=== PATIENT | female | born 1980 | race Caucasian/White ===

== ENCOUNTER → 2017-03-06 | Outpatient (CLI) | payer BC | LOC: FIMAGING 11:37 | PROVIDERS: ATTEND Obstetrics & Gynecology | DX: Z31.9 Encounter for procreative management, unspecified (principal) ==

== ENCOUNTER → 2018-03-21 | Outpatient (CLI) | payer BC | LOC: FIMAGING 14:21 | PROVIDERS: ATTEND Hospitalist | DX: O09.521 Supervision of elderly multigravida, first trimester (principal); F31.9 Bipolar disorder, unspecified; Z3A.12 12 weeks gestation of pregnancy; Z98.891 History of uterine scar from previous surgery ==

== ENCOUNTER → 2018-04-29 | Outpatient (CLI) | payer BC | LOC: FIMAGING 10:26 | PROVIDERS: ATTEND Hospitalist | DX: O09.522 Supervision of elderly multigravida, second trimester (principal); O35.8XX0 Maternal care for other (suspected) fetal abnormality and damage, not applicable or unspecified; Z3A.17 17 weeks gestation of pregnancy; Z98.891 History of uterine scar from previous surgery; Z82.3 Family history of stroke ==

== ENCOUNTER → 2018-07-01 | Outpatient (CLI) | payer BC | LOC: FIMAGING 11:27 | PROVIDERS: ATTEND Hospitalist | DX: Z36.89 Encounter for other specified antenatal screening (principal); O09.522 Supervision of elderly multigravida, second trimester; Z3A.26 26 weeks gestation of pregnancy; O36.62X0 Maternal care for excessive fetal growth, second trimester, not applicable or unspecified; O34.219 Maternal care for unspecified type scar from previous cesarean delivery; O99.342 Other mental disorders complicating pregnancy, second trimester; F31.9 Bipolar disorder, unspecified ==

== ENCOUNTER → 2018-08-08 | Outpatient (CLI) | payer BC | LOC: FIMAGING 09:53 | PROVIDERS: ATTEND Hospitalist | DX: O36.63X0 Maternal care for excessive fetal growth, third trimester, not applicable or unspecified (principal); O09.523 Supervision of elderly multigravida, third trimester; O99.343 Other mental disorders complicating pregnancy, third trimester; O34.219 Maternal care for unspecified type scar from previous cesarean delivery; F31.9 Bipolar disorder, unspecified; Z79.899 Other long term (current) drug therapy; Z3A.32 32 weeks gestation of pregnancy ==

== ENCOUNTER 2018-09-20 18:56 | Observation (INO) | payer BC ==
--- NOTE | 2018-09-20 22:01 | GHP ---
DATE OF ADMISSION: 09/20/2018 ADMITTING DIAGNOSIS: Intrauterine at 37+ weeks' gestation with possible rupture of membran es. No evidence of active labor. HISTORY OF PRESENT ILLNESS: The patient is a 38-year-old, 2, para 1-0-0-1, with a last menst rual period of 12/25/2017, and an EDC of 10/01/2018. She presented complaining to labor and delivery of possible leakage of fluids, rupture of membranes. She noticed gushes of fluid after she had urin ated on 2 different occasions this evening without leakage in between episodes. Fluid was clear. Sh e did not feel that it was urine. She had no vaginal bleeding. Baby was moving well, and she denied contractions. Patient had a with G1 and plans for a repeat . Patient was evaluated in labor and delivery. She was afebrile. Vital signs are stable. heart tones were 120s, reactive, moderate variability, category 1. She had rare contractions and her Amni Sure was negative. Patient was discharged home with labor precautions to follow up as scheduled in t office and for her repeat on schedule. /[id number]/MODL
[2018-09-24] MEDS ORDERED: LR 500 ML IV PRN (06:12)
[2018-09-24] MEDS ORDERED: HYDROmorphONE/DILAUDID 2 MG/ML INJ IVP PRN (06:12)
[2018-09-24] MEDS ORDERED: ONDANSETRON 4 MG/2 ML VIAL IVP PRN ×2 (06:12→07:32)
[2018-09-24] MEDS ORDERED: NALOXONE HCL 0.4 MG/ML INJ IVP PRN ×2 (06:12→07:32)
[2018-09-24] MEDS ORDERED: PROMETHAZINE HCL 25 MG/ML INJ IVP PRN (06:12)
[2018-09-24] MEDS ORDERED: fentaNYL 100 MCG/2 ML INJ IVP PRN (06:12)
[2018-09-24] MEDS ORDERED: PHENYLEPHRINE HCL 100 MCG/ML SYR IVP PRN (06:12)
--- NOTE | 2018-09-24 06:52 | PDANEPAE ---
ANE Past Medical History - Cardiovascular History Hx Hypertension: No Hx Arrhythmias: No Hx Coronary Artery / Peripheral Vascular Disease: No - Pulmonary History Hx Asthma/Reactive Airway Disease: No Hx Sleep Apnea: No - Neurologic History Hx Cerebrovascular Accident: No - Endocrine History Hx Diabetes: No Hypothyroid: No - Renal History Hx Renal Disorders: No - Liver History Hx Hepatic Disorders: No - Neurological & Psychiatric Hx Hx Neurological and Psychiatric Disorders: Yes Neurological / Psychiatric History Comment: Bipolar. Takes lithium but did not take today. - Cancer History Hx Cancer: No - GI History GERD: severe Gastrointestinal History Comment: Takes prilosec. Took today. - Chronic Pain History Chronic Pain: No ANE Review of Systems Review of Systems: ANE Patient History - Allergies Allergies/Adverse Reactions: No Known Allergies Allergy (Verified 09/24/18 06:37) - Home Medications Home Medications: LANSOPRAZOLE [Prevacid 30 mg cap] 30 mg PO DAILY 06/19/13 [Last Taken 09/24/18 04:30] Vit27&Calcium/Iron/FA [] 1 tab PO DAILY 06/19/13 [Last Taken 12:00] Chacra Carbonate [Chacra Carbonate Cap 300 mg (*)] 900 mg PO TID 09/20/18 [ Last Taken 09/23/18 21:00] ACETAMINOPHEN 09/24/18 [Last Taken 09/22/18] Dha 09/24/18 [Last Taken 09/23/18 12:00] Iron 09/24/18 [Last Taken 09/23/18 12:00] - Smoking Hx Smoking Status: Former smoker ANE Labs/Vital Signs - Vital Signs Height: 170.18 cm Weight: 106.594 kg ANE Physical Exam - Airway Neck exam: FROM Mallampati Score: Class 3 Mouth exam: normal dental/mouth exam - Pulmonary Pulmonary: no respiratory distress, no rales or rhonchi, clear to auscultation - Cardiovascular Cardiovascular: regular rate and rhythym, no murmur, rub, or gallop - ASA Status ASA Status: II ANE Anesthesia Plan Anesthesia Plan: spinal
--- NOTE | 2018-09-24 16:10 | POSTANESTH ---
Post Anesthetic Evaluation Cardiovascular Status: Normal, Stable Respiratory Status: Normal, Stable Level of Consciousness/Mental Status: Can Participate in Eval Pain Control: Adequate, Prn Tx Ordered Nausea/Vomiting Control: Adequate, Prn Tx Ordered Complications Possibly Related to Anesthesia: None Noted
== END 2018-09-20 20:30 | disposition home or self-care (01) ==
LOC: FLD 18:56
PROVIDERS: ADMIT Obstetrics & Gynecology; ATTEND Obstetrics & Gynecology
DX: Z03.79 Encounter for other suspected maternal and fetal conditions ruled out (principal); Z3A.37 37 weeks gestation of pregnancy; O09.523 Supervision of elderly multigravida, third trimester
CPT/HCPCS: 59025; G0378

== ENCOUNTER 2018-09-24 05:33 | Inpatient (IN) | payer BC ==
[2018-09-24] MEDS ORDERED: LR 500 ML IV ONE (05:45)
[2018-09-24] MEDS ORDERED: CITRIC ACID/SODIUM CITRATE 30 ML UDCUP PO ONE (05:45)
[2018-09-24] MEDS ORDERED: LR 1,000 ML IV SCH (06:00)
[2018-09-24 06:37] LABS: PLATELET COUNT 227 10^3/uL (150-400)
[2018-09-24] MEDS ORDERED: BUPIVACAINE/DEXTROSE 7.5MG/ML 2 ML SPINAL AMP SP ONE (06:44)
[2018-09-24] MEDS ORDERED: morphINE PF 5 MG/10 ML INJ ONE (07:10)
[2018-09-24] MEDS ORDERED: PHENYLEPHRINE HCL 100 MCG/ML SYR ONE ×3 (07:10→08:51)
[2018-09-24] MEDS ORDERED: ceFAZolin 2 GM/DEXTROSE 100 ML IV ONE (07:10)
[2018-09-24] MEDS ORDERED: MISOPROSTOL 200 MCG TAB ONE (07:44)
[2018-09-24] MEDS ORDERED: OXYTOCIN 100 UNITS/10 ML VIAL ONE (08:35)
[2018-09-24] MEDS ORDERED: oxyCODONE IR 5 MG TAB PO PRN (09:17)
[2018-09-24] MEDS ORDERED: POLYETHYLENE GLYCOL 3350 17 GM PKT PO PRN (09:17)
[2018-09-24] MEDS ORDERED: MAGNESIUM HYDROXIDE 30 ML UDCUP PO PRN (09:17)
[2018-09-24] MEDS ORDERED: BISACODYL 10 MG SUPP PR PRN (09:17)
[2018-09-24] MEDS ORDERED: SIMETHICONE 80 MG TAB CHEW PO PRN (09:17)
[2018-09-24] MEDS ORDERED: LACTULOSE 20 GM/30 ML UDCUP PO PRN (09:17)
[2018-09-24] MEDS ORDERED: HYDROCODONE/APAP 5/325 TAB PO PRN (09:17)
[2018-09-24] MEDS ORDERED: DOCUSATE SODIUM 100 MG CAP PO PRN (09:17)
[2018-09-24] MEDS ORDERED: PROMETHAZINE HCL 25 MG/ML INJ IVP PRN (09:17)
--- NOTE | 2018-09-24 09:23 | OBDEL ---
Info Type: Repeat Presentation at Delivery: Vertex L&D Analgesia/Anesthesia Type: Spinal GBS+: Yes Intrapartum Medications: Discontinued Medications Generic Name Dose Route Start Last Admin Trade Name Virginie PRN Reason Stop Dose Admin Citric Acid/Sodium Citrate 30 ml 09/24/18 05:45 09/24/18 07:28 Bicitra PO 09/24/18 05:46 30 ml ONCALL ONE Administration Lactated Ringer's 500 mls @ 0 mls/hr 09/24/18 05:45 09/24/18 07:00 Lr IV 09/24/18 05:46 500 mls ONCE ONE Administration As Directed Cefazolin Sodium/Dextrose 100 mls @ 200 mls/hr 09/24/18 07:10 09/24/18 07:38 Ancef IV 09/24/18 07:39 100 mls ONCALL ONE Administration Protocol Indications for Delivery: Elective Operative Report - Delivery Pre-op Diagnoses: IUP 39 weeks, history previous section, declines trial of labor Post-op Diagnoses: same as preop plus uterine window, true knot x 2 History of Prior Section: Yes Number of Prior Sections: 1 Nulliparous Prior to Delivery: No Indications for Prior Section: Non-reas. Status Indications for Current Section: Elective/Repeat Procedure: Scheduled, Low Transverse Surgeon: Cele Sierra Fire Range Technician: Jessica Ha Anesthesiologist: Scooby Carballo Complications: None Findings: uterine window, true knot in cord x 2 EBL: 700 Data HUSAM: 10/01/18 Gestational Age: 39 week(s) and 0 day(s) [place] Delivery Date: 09/24/18 Delivery Time: 08:30 Sex of : Female Weight (gm): 3928 g Score (1 Min): 8 Score (5 Min): 9 ICD10 Worksheet Patient Problems: Problems Problem Status Onset delivery delivered Acute - ICD10 Problem Qualifiers (1) delivery delivered
[2018-09-24] MEDS: KETOROLAC 30 MG/1 ML SDV IVP SCH ×3 (09:56→22:15)
[2018-09-24] MEDS ORDERED: KETOROLAC 30 MG/1 ML SDV ONE (09:56)
--- NOTE | 2018-09-24 10:51 | GHP ---
DATE OF ADMISSION: 09/24/2018 PREOPERATIVE DIAGNOSIS: 1. Intrauterine at 39 weeks. 2. History of previous low transverse section. Declines trial of labor. INDICATIONS: The patient is a 38-year-old 2, para 1-0-0-1, who is 39 weeks gestation. Her estimated date of confinement is 09/13/2018, dated by last menstrual period of 12/25/2017, consistent with a 1st-trimester ultrasound. The patient initiated care with [facility] in the 1st trimester. The patient's last was complicated by a traumatic delivery. The patient was receiving care with [facility]. She arrived for induction of labor at 41 weeks, and status was not reassuring. She underwent an urgent primary low transverse section. Baby had a true knot in the cord was found and baby had had multiple strokes and was shipped to [place] for head cooling. The patient had a lot of anxiety during the , but has been working with the therapist and after long discussion, has decided to proceed with a repeat low transverse section. Risks and benefits have been extensively reviewed with the patient and the patient has been properly consented. MEDICAL HISTORY: Significant for bipolar disorder type 2. PTSD over her experience. History of migraines. History of anxiety and depression. History of childhood asthma. Gastroesophageal reflux disease. MEDICATIONS: vitamins. Prevacid. [place] 900 mg total a day. Probiotics. PAST SURGICAL HISTORY: Primary low transverse section. ALLERGIES: No known drug allergies. SOCIAL HISTORY: Patient is . She denies tobacco, alcohol, or drug use. She does have a history of alcohol abuse. FAMILY MEDICAL HISTORY: Noncontributory. CIVIL ENGINEERING MANAGER HISTORY: Menarche age 11. Periods were regular. She is a 2, para 1-0-0-1. In 2012, she had a primary low transverse section of an 8 pound 7 ounce male infant at 41 weeks' gestation. She had an urgent C- section for non-reassuring status. Current has been uncomplicated. She has increased surveillance with Maternal Medicine and growth ultrasounds for estimated weight of greater than 98th percentile as well as being on lithium in . The patient denies any history of any abnormal Pap smears or sexually transmitted diseases. REVIEW OF SYSTEMS: 10-point review of systems is negative. She has positive movement. No loss of fluid. She denies any headaches or changes in vision. PHYSICAL EXAMINATION: VITAL SIGNS: Stable. She did have 1 elevated pressure prior to the section, but the remainder of her pressures have been normal. Preeclampsia labs were sent and pending. GENERAL APPEARANCE: Alert and oriented x3. PSYCH: Appropriate affect, somewhat anxious, however, that is appropriate with interactions. MUSCULOSKELETAL: Grossly intact. NEURO: Grossly intact. HEART: Heart rate is regular, regular. LUNGS: Clear to auscultation bilaterally. ABDOMEN: Gravid, nondistended, nontender. No organomegaly is noted. EXTREMITIES: Reveal no calf tenderness or edema. PELVIC: Deferred. status is reassuring. Positive accelerations, no decelerations. LABS: Blood type AB positive. Antibody screen negative. Rubella immune. GBS positive. HBsAg negative. HIV negative. Her 50 g glucose was 105. The patient is varicella nonimmune. ASSESSMENT AND PLAN: 38-year-old, 2, para 1-0-0-1 at 39 weeks gestation for repeat low transverse section. Patient's family status is complete. However, she declines tubal ligation and her will have a vasectomy. /[id number]/MODL MTDD
[2018-09-24] MEDS: ACETAMINOPHEN 325 MG TAB PO SCH ×3 (12:58→22:41)
[2018-09-24] MEDS: LITHIUM CARBONATE ER 300 MG TAB PO SCH ×2 (13:00→22:15)
[2018-09-24] MEDS ORDERED: diphenhydrAMINE 25 MG CAP PO PRN (19:57)
--- NOTE | 2018-09-24 20:22 | OBPP ---
Progress Note Assessment/Plan: Assessment: 38 yo pod# 0 s/p RLTCS rh +/RI/GBS + bottle feeding / not pumping due to bipolar disease and patient preference uncomplicated post operative and post course bipolar - stable Plan: 09/24/18 20:20 Subjective/ Course: 09/24/18 20:19 patent is doing well. pain is well controlled. was able to stand at bedside but hasnt ambulated yet. patient is bottle feeding. mood stable. tolerating diet. no concerns. Objective: 09/24/18 06:31 09/24/18 06:51 Patient ABO/Rh AB POSITIVE 09/24/18 06:31 Uric Acid 6.8 mg/dL (2.5-6.8) 09/24/18 06:51 Total Bilirubin 0.3 mg/dL (0.1-1.4) 09/24/18 06:51 Conjugated Bilirubin 0.2 mg/dL (0.0-0.5) 09/24/18 06:51 Unconjugated Bilirubin 0.1 mg/dL (0.0-1.1) 09/24/18 06:51 AST 24 IU/L (14-46) 09/24/18 06:51 ALT 20 IU/L (9-52) 09/24/18 06:51 Lactate Dehydrogenase 564 IU/L (313-618) 09/24/18 06:51 Temp Pulse Resp BP Pulse Ox 36.1 C 87 16 121/75 H 96 09/24/18 16:00 09/24/18 18:07 09/24/18 18:07 09/24/18 16:00 09/24/18 18:07 Physical Exam - Physical Exam Respiratory: chest non-tender, lungs clear, normal breath sounds Cardiac/Chest: normal peripheral pulses, regular rate, rhythm Abdomen: normal bowel sounds, non-tender, other (fundus firm and non tender) Extremities: normal range of motion, non-tender, normal inspection, normal capillary refill Skin: normal color, warm/dry Neuro/Psych: no motor/sensory deficits, alert, normal mood/affect, oriented x 3
[2018-09-24] MEDS: SENNOSIDES/DOCUSATE SODIUM TAB PO SCH (22:42)
--- NOTE | 2018-09-25 01:41 | GOP ---
DATE OF OPERATION: 09/24/2018 SURGEON: Cele Sierra DO LINKING MACHINE OPERATOR: Jessica Ha MD. ANESTHESIOLOGIST: Scooby Carballo MD. PREOPERATIVE DIAGNOSIS: 1. Intrauterine . 2. History of previous low transverse section. Declines trial of labor. POSTOPERATIVE DIAGNOSIS: 1. Intrauterine . 2. History of previous low transverse section. Declines trial of labor. 3. Uterine window. 4. Double true knot in the cord. PROCEDURE PERFORMED: Repeat low transverse section. FINDINGS: 1. Viable female in the cephalic presentation delivered at 8:30 a.m. Apgars were 8 and 9. 2. Uterine window noted on the anterior portion of the uterus. Otherwise normal ovaries, uterus, and tubes. Intact placenta with 3-vessel cord with two true knots noted in the umbilical cord. ESTIMATED BLOOD LOSS: 800 cc. INDICATIONS: Patient is a 38-year-old 2, para 1-0-1-1, who is 39 weeks ' gestation. She has an estimated date of confinement of 10/01/2018, dated by first-trimester ultrasound, consistent with last menstrual. The patient has a history of a previous low transverse section for non-reassuring status. A true knot was found in the cord at that time, but patient elected to proceed with a repeat low transverse section. Risks and benefits have been reviewed with the patient, and patient has been properly consented. DESCRIPTION OF PROCEDURE: Patient was taken to the operating room with intravenous fluids in place. She was given 2 g of Ancef intravenously and placed on the operating room table in the dorsal supine position. After spinal anesthesia was obtained, she was placed on the table in a leftward tilt. Palacio catheter was then placed. Venodynes were placed on her lower extremities, and she was then prepped and draped in the normal sterile fashion. Anesthesia was assessed and found to be adequate. A Pfannenstiel skin incision was then made 2 fingerbreadths above the pubic symphysis. The incision was then carried through the underlying layer of fascia with the Bovie. The fascia was then nicked in the midline, and fascial incision was then laterally extended. The superior aspect of the fascia incision was grasped with a Samantha, tented up, and the underlying rectus muscle dissected off bluntly with Bovie. Attention was then turned to the inferior aspect of the fascial incision which in similar fashion was grasped with Kochers, tented up, and underlying rectus muscle dissected off bluntly with the Bovie. The rectus muscle was then in the midline. The peritoneum was then identified, tented up, and entered sharply with the Metzenbaum scissors. The incision was extended superiorly and inferiorly with excellent visualization of the bladder. The bladder blade was then inserted. The vesicouterine peritoneum was identified, tented up, and entered sharply with the Metzenbaum scissors. The incision was extended laterally. The bladder blade was then reinserted. The lower uterine segment was noted to have a large uterine window. The uterine incision was then made with a scalpel. The uterine incision extended laterally. Membranes were artificially ruptured, and a large amount of clear fluid was noted. The ' s head was then delivered through the incision without difficulty. The remainder of the baby delivered without difficulty. Delayed cord clamping x1 minute was done. Cord was doubly clamped x2, cut, and the was handed off to awaiting nurse practitioner. Two knots in the cord were noted, and a picture was taken to show the patient later. Cord blood was obtained. Intact placenta with 3-vessel cord delivered without difficulty. Pitocin was then started. The uterus was then exteriorized and cleared of all clots and debris and wrapped in a moist laparotomy sponge. A bladder blade was then reinserted. The hysterotomy was closed with 0 Vicryl in a running locked fashion. No additional suture was used as the patient's family status is complete and would not be a good candidate for vaginal after section. Hemostasis was assured. Ovaries, uterus, and tubes were unremarkable. The uterus was then returned to the patient's abdomen. Gutters were cleared of all clots and debris. Hysterotomy remained hemostatic. The peritoneum was reapproximated with 3-0 Vicryl in a running fashion. Fascia was closed with 0 Vicryl in a running fashion. Subcutaneous tissue was hemostatic. Laury's tissue was reapproximated with 2-0 Vicryl in a running fashion. Subcuticular tissue was reapproximated with 3-0 Vicryl in a running fashion. The skin was then closed with dea. Sponge, lap, and needle counts were correct x2. Patient was transported to recovery room in stable condition. /[id number]/MODL MTDD
[2018-09-25] MEDS: KETOROLAC 30 MG/1 ML SDV IVP SCH (04:08)
[2018-09-25] MEDS: ACETAMINOPHEN 325 MG TAB PO SCH ×4 (04:39→22:26)
[2018-09-25] MEDS: LITHIUM CARBONATE ER 300 MG TAB PO SCH ×2 (09:31→22:36)
[2018-09-25] MEDS: SENNOSIDES/DOCUSATE SODIUM TAB PO SCH ×2 (09:32→20:52)
[2018-09-25] MEDS: IBUPROFEN 600 MG TAB PO SCH ×3 (09:32→22:25)
--- NOTE | 2018-09-25 10:12 | OBPP ---
Progress Note Assessment/Plan: Assessment: POD 1 s/p RCS bipolar disorder - on meds PTSD after first - so happy to have c/s knowing double knot in cord BOTTLE FEEDING due to meds Plan: routine care will try dilaudid as [place] caused hallucinations after first baby 09/25/18 10:08 Subjective/ Course: 09/24/18 20:19 patent is doing well. pain is well controlled. was able to stand at bedside but hasnt ambulated yet. patient is bottle feeding. mood stable. tolerating diet. no concerns. 09/25/18 10:10 Pt doing well. So happy with c/s event yesterday. baby is bottle feeding well. wearing tight sports bra. escobar out but hasn't urinated yet. Not OOB as anxious about pain. hydrating well and no nausea with food. bld is light. Mood is good. slept some 09/25/18 10:11 Objective: 09/25/18 07:10 09/24/18 06:51 Patient ABO/Rh AB POSITIVE 09/24/18 06:31 Uric Acid 6.8 mg/dL (2.5-6.8) 09/24/18 06:51 Total Bilirubin 0.3 mg/dL (0.1-1.4) 09/24/18 06:51 Conjugated Bilirubin 0.2 mg/dL (0.0-0.5) 09/24/18 06:51 Unconjugated Bilirubin 0.1 mg/dL (0.0-1.1) 09/24/18 06:51 AST 24 IU/L (14-46) 09/24/18 06:51 ALT 20 IU/L (9-52) 09/24/18 06:51 Lactate Dehydrogenase 564 IU/L (313-618) 09/24/18 06:51 Temp Pulse Resp BP Pulse Ox 36.6 C 53 L 16 116/75 95 09/25/18 07:30 09/25/18 07:30 09/25/18 07:30 09/25/18 07:30 09/25/18 07:30 Uterine Position/Fundal Height: Umbilicus -1 Uterine Tone: Firm Physical Exam - Physical Exam Abdomen: non-tender (approp post op tenderness), soft, dressing (CDI, no drainage) Extremities: non-tender, pedal edema (moderate) Skin: normal color, warm/dry Neuro/Psych: alert, normal mood/affect
[2018-09-25] MEDS: HYDROmorphONE/DILAUDID 2 MG TAB PO PRN ×2 (10:20→14:18)
[2018-09-25] MEDS: FERROUS SULFATE 140 MG TAB.ER PO SCH (10:20)
[2018-09-25] MEDS: oxyCODONE IR 5 MG TAB PO PRN (20:26)
[2018-09-26] MEDS: oxyCODONE IR 5 MG TAB PO PRN ×4 (03:58→17:27)
[2018-09-26] MEDS: ACETAMINOPHEN 325 MG TAB PO SCH ×4 (03:59→22:35)
[2018-09-26] MEDS: IBUPROFEN 600 MG TAB PO SCH ×4 (03:59→22:34)
[2018-09-26] MEDS: SENNOSIDES/DOCUSATE SODIUM TAB PO SCH ×2 (09:07→21:52)
[2018-09-26] MEDS: FERROUS SULFATE 140 MG TAB.ER PO SCH (09:08)
[2018-09-26] MEDS: LITHIUM CARBONATE ER 300 MG TAB PO SCH ×2 (09:51→21:53)
--- NOTE | 2018-09-26 18:18 | OBPP ---
Progress Note Assessment/Plan: Assessment: 38 yo pod# 2 s/p RLTCS rh +/RI/GBS + bottle feeding / not pumping due to bipolar disease and patient preference uncomplicated post operative and post course bipolar - stable anemia - iron 09/26/18 18:16 Subjective/ Course: 09/24/18 20:19 patent is doing well. pain is well controlled. was able to stand at bedside but hasnt ambulated yet. patient is bottle feeding. mood stable. tolerating diet. no concerns. 09/25/18 10:10 Pt doing well. So happy with c/s event yesterday. baby is bottle feeding well. wearing tight sports bra. escobar out but hasn't urinated yet. Not OOB as anxious about pain. hydrating well and no nausea with food. bld is light. Mood is good. slept some 09/25/18 10:11 09/26/18 18:16 patient is doing well. pain is well controlled. wearing supportive bra. avoiding nipple stimulation. milk has not come in. denies headache and changes in vision. normal lochia. tolerating diet. passing gas. no bowel movement. no concerns. mood is good. Objective: 09/25/18 07:10 09/24/18 06:51 Patient ABO/Rh AB POSITIVE 09/24/18 06:31 Uric Acid 6.8 mg/dL (2.5-6.8) 09/24/18 06:51 Total Bilirubin 0.3 mg/dL (0.1-1.4) 09/24/18 06:51 Conjugated Bilirubin 0.2 mg/dL (0.0-0.5) 09/24/18 06:51 Unconjugated Bilirubin 0.1 mg/dL (0.0-1.1) 09/24/18 06:51 AST 24 IU/L (14-46) 09/24/18 06:51 ALT 20 IU/L (9-52) 09/24/18 06:51 Lactate Dehydrogenase 564 IU/L (313-618) 09/24/18 06:51 Temp Pulse Resp BP Pulse Ox 36.6 C 90 20 123/82 H 97 09/26/18 08:00 09/26/18 08:00 09/25/18 20:00 09/26/18 08:00 09/26/18 08:00 Physical Exam - Physical Exam Neck: non-tender, full range of motion Respiratory: chest non-tender, lungs clear, normal breath sounds Cardiac/Chest: normal peripheral pulses, regular rate, rhythm Abdomen: normal bowel sounds, non-tender, other (fundus firm and non tender) Extremities: normal range of motion, non-tender, normal inspection, normal capillary refill Skin: normal color, warm/dry, other (incisions clean dry and intact. dea) Neuro/Psych: no motor/sensory deficits, alert, normal mood/affect, oriented x 3
[2018-09-27] MEDS: ACETAMINOPHEN 325 MG TAB PO SCH ×3 (03:50→10:06)
[2018-09-27] MEDS: IBUPROFEN 600 MG TAB PO SCH ×2 (04:13→10:05)
[2018-09-27 09:41] VITALS: BP 119/74
[2018-09-27] MEDS: SENNOSIDES/DOCUSATE SODIUM TAB PO SCH (10:05)
[2018-09-27] MEDS: FERROUS SULFATE 140 MG TAB.ER PO SCH (10:05)
[2018-09-27] MEDS: LITHIUM CARBONATE ER 300 MG TAB PO SCH (10:07)
--- NOTE | 2018-09-27 11:36 | OBGCSDC ---
General Delivery Information - General Info : 2 Para: 2 Abortions: 0 Type: Repeat L&D Analgesia/Anesthesia Type: Spinal Admission Date: 09/24/18 Labs: Patient ABO/Rh AB POSITIVE 09/24/18 06:31 Hct 30.2 % (38.0-47.0) L 09/25/18 07:10 - Hospital Course : 09/24/18 20:19 patent is doing well. pain is well controlled. was able to stand at bedside but hasnt ambulated yet. patient is bottle feeding. mood stable. tolerating diet. no concerns. 09/25/18 10:10 Pt doing well. So happy with c/s event yesterday. baby is bottle feeding well. wearing tight sports bra. escobar out but hasn't urinated yet. Not OOB as anxious about pain. hydrating well and no nausea with food. bld is light. Mood is good. slept some 09/25/18 10:11 09/26/18 18:16 patient is doing well. pain is well controlled. wearing supportive bra. avoiding nipple stimulation. milk has not come in. denies headache and changes in vision. normal lochia. tolerating diet. passing gas. no bowel movement. no concerns. mood is good. - Delivery Providers Surgeon: Cele Sierra Aix Architect: Jessica Ha Anesthesiologist: Scooby Carballo - Delivery Number of Prior Sections: 1 Indications for Current Section: Elective/Repeat Surgical Procedures: Scheduled, Low Transverse Intra-op Complications: None EBL: 700 [place] Data HUSAM: 10/01/18 Gestational Age: 39 week(s) and 5 day(s) [facility] Delivery Date: 09/24/18 Delivery Time: 08:30 Sex of Infant: Female Weight (gm): 3928 g Score (1 Min): 8 Score (5 Min): 9 Discharge Information - Discharge Information Prescriptions: Hydrocodone/APAP 5/325 [[place] 5/325 (*)] 1 - 2 tab PO Q4HRS PRN #20 tab PRN Reason: Pain, Moderate oxyCODONE IR [Oxycodone Ir (*)] 5 mg PO Q4HRS PRN #16 tab PRN Reason: Pain, Breakthrough Condition: Good Instruction/Follow Up: See Instruction Sheet, Two Weeks, Four Weeks, Six Weeks
--- NOTE | 2018-09-27 11:36 | OBPP ---
Progress Note Assessment/Plan: Assessment: Assessment: 38 yo pod# 3 s/p RLTCS rh +/RI/GBS + bottle feeding / not pumping due to bipolar disease and patient preference uncomplicated post operative and post course bipolar - stable anemia - iron DC home today - mood check 1 wk, she will be following closely with her mental health team/providers Subjective/ Course: 09/24/18 20:19 patent is doing well. pain is well controlled. was able to stand at bedside but hasnt ambulated yet. patient is bottle feeding. mood stable. tolerating diet. no concerns. 09/25/18 10:10 Pt doing well. So happy with c/s event yesterday. baby is bottle feeding well. wearing tight sports bra. escobar out but hasn't urinated yet. Not OOB as anxious about pain. hydrating well and no nausea with food. bld is light. Mood is good. slept some 09/25/18 10:11 09/26/18 18:16 patient is doing well. pain is well controlled. wearing supportive bra. avoiding nipple stimulation. milk has not come in. denies headache and changes in vision. normal lochia. tolerating diet. passing gas. no bowel movement. no concerns. mood is good. 09/29/18 21:06 Doing great - ready for home. Mood good, pain well controlled. Objective: 09/25/18 07:10 09/24/18 06:51 Patient ABO/Rh AB POSITIVE 09/24/18 06:31 Uric Acid 6.8 mg/dL (2.5-6.8) 09/24/18 06:51 Total Bilirubin 0.3 mg/dL (0.1-1.4) 09/24/18 06:51 Conjugated Bilirubin 0.2 mg/dL (0.0-0.5) 09/24/18 06:51 Unconjugated Bilirubin 0.1 mg/dL (0.0-1.1) 09/24/18 06:51 AST 24 IU/L (14-46) 09/24/18 06:51 ALT 20 IU/L (9-52) 09/24/18 06:51 Lactate Dehydrogenase 564 IU/L (313-618) 09/24/18 06:51 Temp Pulse Resp BP Pulse Ox 36.2 C 96 16 119/74 95 09/27/18 08:00 09/27/18 08:00 09/27/18 08:00 09/27/18 08:00 09/27/18 08:00 Uterine Position/Fundal Height: At Umbilicus Uterine Tone: Firm Physical Exam - Physical Exam Abdomen: non-tender, soft, incision (CDI steri strips), No distended
== END 2018-09-27 13:20 | disposition home or self-care (01) | DRG 788 ==
LOC: FLD 05:33 → FOB 10:45
PROVIDERS: ADMIT Obstetrics & Gynecology; ATTEND Obstetrics & Gynecology
PROC: 10D00Z1 Extraction of Products of Conception, Low, Open Approach (ICD-10-PCS; principal; 2018-09-24)
DX: O34.219 Maternal care for unspecified type scar from previous cesarean delivery (principal); Z37.0 Single live birth; Z3A.39 39 weeks gestation of pregnancy; O99.344 Other mental disorders complicating childbirth; F31.9 Bipolar disorder, unspecified; O99.824 Streptococcus B carrier state complicating childbirth
CPT/HCPCS: J0690; J1885; J2274; J2370; J2590